=== PATIENT | male | born 1980 | race Caucasian/White ===

== ENCOUNTER 2020-04-07 08:27 | Outpatient (REF) | payer OTHER, SELFPAY | END 2020-04-07 08:28 | disposition home or self-care (01) | LOC: HO.LAB 08:27 | PROVIDERS: PCP Internal Medicine; Visit Provider Internal Medicine | DX: Z20.828 Contact with and (suspected) exposure to other viral communicable diseases (principal) | CPT/HCPCS: 87635 ==

== ENCOUNTER 2020-04-19 11:44 | Outpatient (REF) | payer OTHER, SELFPAY | END 2020-04-19 11:45 | disposition home or self-care (01) | LOC: HO.LAB 11:44 | PROVIDERS: Visit Provider Internal Medicine | DX: Z20.828 Contact with and (suspected) exposure to other viral communicable diseases (principal) | CPT/HCPCS: 87635 ==

== ENCOUNTER 2020-07-30 09:37 | Outpatient (REF) | payer OTHER, SELFPAY | END 2020-07-30 09:38 | disposition home or self-care (01) | LOC: HO.LAB 09:37 | PROVIDERS: Visit Provider Internal Medicine | DX: Z20.822 Contact with and (suspected) exposure to COVID-19 (principal) | CPT/HCPCS: 36415; C9803; U0003 ==

== ENCOUNTER 2021-03-28 10:48 | Emergency (ER) | payer OTHER, SELFPAY ==
[2021-03-28 11:45] VITALS: BP 109/76; PULSE 65; RESP 18; TEMP 36.9; O2SAT 99; BMI 23.6
[2021-03-28 12:18] LABS: MANUAL DIFF FLAG NO
[2021-03-28 12:20] LABS: Basophils Percent Auto 0.4 % (0-2); Eosinophils Percent Auto 0.4 % (0-4); Hematocrit 39.6 % (42-52); Hemoglobin 13.3 g/dl (14.0-18.0); Imm Gran Abs Auto 0.02 X10*3/uL (0.00-0.03); Imm Gran Pct Auto 0.3 % (0.0-0.4); Lymphocytes Absolute Auto 1.9 X10*3/uL (1.2-4.9); Lymphocytes Percent Auto 25.1 % (20-40); Mean Corpuscular HGB Conc 33.6 g/dl (31.0-36.0); Mean Corpuscular Hemoglobin 27.1 pg (27.0-33.0); Mean Corpuscular Volume 80.7 fL (80-98); Mean Platelet Volume 10.8 fL (9.4-12.4); Monocytes Absolute Auto 0.6 X10*3/uL (0.1-1.2); Monocytes Percent Auto 7.5 % (2-11); Neutrophils Absolute Auto 4.9 X10*3/uL (2.0-8.3); Neutrophils Percent Auto 66.3 % (45-73); Platelet Count 252 X10*3/uL (160-400); Red Blood Count 4.91 X10*6/uL (4.60-5.80); White Blood Count 7.4 X10*3/uL (4.8-10.8)
[2021-03-28 12:22] LABS: Appearance Urine HAZY; Color Urine STRAW; Glucose Urine UA NEG (NEG); Leukocyte Esterase Urine NEG (NEG); Nitrite Urine NEG (NEG); Specific Gravity - Urine <= 1.005 (1.005-1.025); Urine Blood NEG (NEG); Urine Ketones NEG (NEG); Urine Protein NEG (NEG-TRACE)
--- NOTE | 2021-03-28 12:28 | ED_ITS ---
HPI - General Adult General Chief complaint: General Medical Stated complaint: back pain Time Seen by Provider: 03/28/21 11:58 Source: patient Mode of arrival: ambulatory Limitations: no limitations History of Present Illness HPI narrative: Patient presents to ED multiple complaints. Patient states chronic lower back pain for years is going to physical therapy for his back pain. Patient denies any urinary/bowel incontinence. Patient had 2 normal x- ray at [facility]. Patient may concern is left flank pain for 4 months and wanted to get evaluated. Patient thinks he might be having issues in his kidneys and will prefer to get blood work to evaluate his kidneys. Patient denies any recent trauma to abdomen or back, nausea, vomiting, dysuria, hematuria, fever, or chills. Patient states the flank pain is worse on movement. Patient does have history of muscle spasm. Patient denies any urinary/bowel incontinence. Related Data Previous Rx's Medication Instructions Recorded cyclobenzaprine 10 mg tablet 10 mg PO TID PRN #18 tab 03/28/21 prednisone 20 mg tablet 40 mg PO DAILY 5 Days #10 tab 03/28/21 Allergies Allergy/AdvReac Type Severity Reaction Status Date / Time aspirin Allergy Swelling Verified 03/28/21 11:49 Review of Systems Constitutional: Constitutional: Reports as per HPI and Reports no additional constitutional complaints Eyes: Eyes: Reports as per HPI and Reports no additional eye complaints ENT: Reports system reviewed and no additional complaints, except as documented and Reports as per HPI Cardiovascular: Cardiovascular: Reports as per HPI and Reports no additional cardiovascular complaints Respiratory: Respiratory: Reports as per HPI and Reports no additional respiratory complaints Gastrointestinal: Gastrointestinal: Reports as per HPI and Reports no additional gastrointestinal complaints Genitourinary: Genitourinary: Reports no additional male genitourinary complaints and Reports as per HPI Musculoskeletal: Musculoskeletal: Reports no additional musculoskeletal complaints, Reports as per HPI and Reports back pain (Low back pain) Comments: Left flank pain Neurologic: Reports system reviewed and no additional complaints, except as documented and Reports as per HPI Psychiatric: Psychiatric: Reports no additional psychiatric complaints and Reports as per HPI [facility] Past Medical History Medical History (Updated 03/28/21 @ 13:12 by LANETTE Bolton) No known health problems Social History Social History Advance Directives: No Advance Directives Information Provided: No Physical Exam Vital Signs: Vital Signs: Last Vital Signs Temp 98.5 F 03/28/21 11:45 Pulse 65 03/28/21 11:45 Resp 18 03/28/21 11:45 BP 109/76 03/28/21 11:45 Pulse Ox 99 03/28/21 11:45 Body Mass Index 23.6 Const: General: cooperative, healthy appearing, comfortable, no acute distress, well developed, alert, awake and Physically active Orientation/consciousness: patient oriented x3 HENMT: Head: Yes normal to inspection, Yes No palpable skull fracture present, Yes normocephalic, Yes atraumatic and No abrasion Eyes: General: appearance normal, both eyes and all related structures Neck: Neck: Yes normal visual inspection, Yes full ROM, Yes no lymphadenopathy, Yes no meningeal signs, Yes trachea midline, Yes supple and No tender Chest: Chest palpation & inspection: normal inspection of the chest and normal palpation of entire chest wall Resp: Effort & Inspection: normal respiratory effort and able to speak in complete sentences Auscultation: clear to auscultation bilaterally GI: Inspection: Yes normal to inspection and No abdominal wall ecchymosis Palpation (GI): Soft to palpation, not firm, nontender, no guarding and not rigid : General: Yes CVA tenderness (left flank) and Yes no CVA tenderness Back/Spine/Pelvis: Other: Left flank pain on movement. Back: no CVA tenderness, CVA tenderness (left flank) and back tenderness (mild lumbar spine) Skin: General skin exam: no rashes or lesions noted and elasticity normal Neuro: General: patient oriented x3, gait normal, no meningeal signs and CN's II-XI intact bilaterally Cranial nerves: Yes CN's II-XII intact bilaterally Extrem: General: Yes normal to inspection and Yes full ROM Psych: Appearance: grossly normal, well kempt and not disheveled Course Course Course Narrative: History physical exam does not indicate cauda equinus syndrome. Patient does not have any recent trauma. 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 None indication for repeat x-ray. History muscle spasm. Order lidocaine patch. Patient cannot use aspirin and NSAIDs. Will order urine just basic labs due to patient being concerned for kidney function. Reevaluation(s) Reevaluation #1: Patient labs and urine came back normal. Patient to be discharged with muscle relaxers and steroids. Patient can only take Tylenol. Patient cannot take NSAIDs due to allergies. Time: 13:11 Medical Decision Making MDM Narrative Medical decision making narrative: Muscle spasm Lab Data Result diagrams: 03/28/21 12:12 03/28/21 12:12 Labs: Lab Results 03/28/21 03/28/21 03/28/21 Range/Units 12:12 12:12 12:12 WBC 7.4 (4.8-10.8) X10*3/uL RBC 4.91 (4.60-5.80) X10*6/uL Hgb 13.3 L (14.0-18.0) g/dl Hct 39.6 L (42-52) % MCV 80.7 (80-98) fL MCH 27.1 (27.0-33.0) pg MCHC 33.6 (31.0-36.0) g/dl RDW 13.0 (11.0-16.0) % Plt Count 252 (160-400) X10*3/uL MPV 10.8 (9.4-12.4) fL Immature Gran % (Auto) 0.3 (0.0-0.4) % Neut % (Auto) 66.3 (45-73) % Lymph % (Auto) 25.1 (20-40) % [place] % (Auto) 7.5 (2-11) % Eos % (Auto) 0.4 (0-4) % Baso % (Auto) 0.4 (0-2) % Lymph # (Auto) 1.9 (1.2-4.9) X10*3/uL [place] # (Auto) 0.6 (0.1-1.2) X10*3/uL Eos # (Auto) 0.0 (0.0-0.4) X10*3/uL Baso # (Auto) 0.0 (0.0-0.2) X10*3/uL Abs Immat Gran (auto) 0.02 (0.00-0.03) X10*3/uL Absolute Neuts (auto) 4.9 (2.0-8.3) X10*3/uL Absolute Nucleated RBC 0.000 (0.0-0.012) X10*3/uL Nucleated RBC % (auto) 0.0 (0.0-0.2) /100WBC Sodium 140 (135-145) mmol/L Potassium 4.1 (3.3-5.1) mmol/L Chloride 107 (96-108) mmol/L Carbon Dioxide 24 (22-29) mmol/L Anion Gap 13 (12-20) BUN 16 (9-16) mg/dL Creatinine 0.79 (0.5-1.4) mg/dL Estim Creat Clear Calc 129.6 Estimated GFR > 60 Random Glucose 98 (60-115) mg/dL Calcium 9.6 (8.4-10.2) mg/dL Urine Color STRAW Urine Appearance HAZY Urine pH 6.0 (5.0-8.0) Ur Specific [place] <= 1.005 (1.005-1.025) Urine Protein NEG (NEG-TRACE) MG/DL Urine Glucose (UA) NEG (NEG) MG/DL Urine Ketones NEG (NEG) MG/DL Urine Blood NEG (NEG) Urine Nitrite NEG (NEG) Ur Leukocyte Esterase NEG (NEG) Discharge Plan Discharge Clinical Impression: Muscle spasm Patient Disposition: Home, Self-Care Instructions: Muscle Spasm (ED) Additional Instructions: Return to ED for any dysuria, hematuria, testicular pain, nausea, vomiting, severe back pain, severe flank pain, urinary/bowel incontinence, or any other concerning symptoms. You can also take Tylenol with med you are being prescribed. Please follow-up with primary care provider Prescriptions: New cyclobenzaprine 10 mg tablet 10 mg PO TID PRN (Reason: pain) Qty: 18 RF: 0 prednisone 20 mg tablet 40 mg PO DAILY 5 Days Qty: 10 RF: 0 Stand Alone Forms: Work/School Release Interventions: ED Discharge Assessment Last Done: 03/28/21 13:30 Discharge Date/Time: 03/28/21 13:30 Print Language: Tanzanian
[2021-03-28 12:35] LABS: Anion Gap 13 (12-20); Blood Urea Nitrogen 16 mg/dL (9-16); Calcium 9.6 mg/dL (8.4-10.2); Carbon Dioxide 24 mmol/L (22-29); Chloride 107 mmol/L (96-108); Creatinine Clr Calc Pharmacy 129.6; Estimated Glomerular Filt Rate > 60; Glucose Random 98 mg/dL (60-115); Potassium 4.1 mmol/L (3.3-5.1); Sodium 140 mmol/L (135-145)
[2021-03-28] MEDS: Lidocaine 4 % Patch ADH..PATCH 1 PATCH TRANSDERMA (12:51)
== END 2021-03-28 13:30 | disposition home or self-care (01) ==
PROVIDERS: Physician Assistant; Emergency Provider Emergency Medicine
DX: M54.5 Low back pain (principal); M62.830 Muscle spasm of back; Z79.899 Other long term (current) drug therapy
CPT/HCPCS: 36415; 80048; 81003; 85025; 99283

== ENCOUNTER 2021-07-08 13:39 | Outpatient (REF) | payer OTHER, SELFPAY ==
[2021-07-08 15:06] LABS: Binax Internal Control QC Valid; Binax Now Covid-19 Ag Negative (Negative)
== END 2021-07-08 13:40 | disposition home or self-care (01) ==
LOC: HO.LAB 13:39
PROVIDERS: Visit Provider Internal Medicine
DX: Z20.822 Contact with and (suspected) exposure to COVID-19 (principal)
CPT/HCPCS: 36415; C9803

== ENCOUNTER 2021-10-02 12:47 | Emergency (ER) | payer OTHER, SELFPAY ==
[2021-10-02 13:07] VITALS: BP 127/69; PULSE 89; RESP 16; TEMP 36.6; O2SAT 98; BMI 25.1
--- NOTE | 2021-10-02 14:30 | ED.GENADULT ---
HPI - General Adult General Chief complaint: General Medical Stated complaint: swollen glands Time Seen by Provider: 10/02/21 14:24 Source: patient Mode of arrival: ambulatory Limitations: no limitations History of Present Illness HPI narrative: 41-year-old male here with reports of right-sided swollen lymph nodes since yesterday. He denies any fevers, chills, weight loss, sore throat, cough, runny nose, ear pain, shortness of breath, chest pain. Patient states he feels well and has not been sick lately with any symptoms. He does report that he has some right lower dental pain which he has had for several months. He has not seen a dentist. He does have dental insurance. Related Data Previous Rx's Medication Instructions Recorded cyclobenzaprine 10 mg tablet 10 mg PO TID PRN #18 tab 03/28/21 prednisone 20 mg tablet 40 mg PO DAILY 5 Days #10 tab 03/28/21 amoxicillin 500 mg tablet 500 mg PO BID #20 tab 10/02/21 Allergies Allergy/AdvReac Type Severity Reaction Status Date / Time aspirin Allergy Swelling Verified 10/02/21 13:10 Review of Systems Review of Systems: Yes all other systems are reviewed and are negative Constitutional: Constitutional: Reports no additional constitutional complaints, Denies body ache(s), Denies chills, Denies fever(s), Denies headache(s) and Denies weakness Eyes: Eyes: Reports no additional eye complaints and Denies change in vision ENT: Reports system reviewed and no additional complaints, except as documented, Reports dental pain, Denies dizziness, Denies headache(s), Denies nasal congestion, Denies nasal discharge and Denies neck pain Cardiovascular: Cardiovascular: Reports no additional cardiovascular complaints, Denies chest pain, Denies leg edema and Denies dyspnea Respiratory: Respiratory: Reports no additional respiratory complaints, Denies cough and Denies dyspnea Gastrointestinal: Gastrointestinal: Reports no additional gastrointestinal complaints, Denies abdominal pain, Denies diarrhea, Denies nausea and Denies vomiting Genitourinary: Genitourinary: Denies urinary incontinence Musculoskeletal: Musculoskeletal: Reports no additional musculoskeletal complaints, Denies back pain, Denies arthralgias, Denies joint swelling, Denies neck pain, Denies numbness and Denies tingling Integumentary/Breasts: Skin/Breast: Reports system reviewed and no additional complaints, except as docu and Denies rash Neurologic: Reports system reviewed and no additional complaints, except as documented, Denies dizziness, Denies headache(s), Denies numbness, Denies tingling and Denies weakness PMFSH Past Medical History Attestation statement: The following information was validated with the patient. Source: old records reviewed and nursing notes reviewed Medical History No known health problems Social History Social History Advance Directives: No Advance Directives Information Provided: Yes Physical Exam ED Vital Signs: Vital Signs - 24 hr 10/02/21 13:07 Temperature 97.8 F Pulse Rate 89 Respiratory Rate 16 Blood Pressure 127/69 Pulse Oximetry 98 BMI result Body Mass Index 25.1 Const General: cooperative, healthy appearing and no acute distress Orientation/consciousness: patient oriented x3 Limitations: no limitations HENMT Head: Yes normal to inspection Ears: hearing grossly normal bilaterally and TM's normal bilaterally General nose exam: Normal external nose present Face and sinus: Yes normal facial exam Mouth: Normal oral and palatal mucosa present Teeth and gingiva: caries and other (Extensive caries, no obvious abscesses or infection noted) Throat: Yes posterior oropharynx normal, Yes tonsils normal and Yes uvula midline Eyes General: appearance normal, both eyes and all related structures Pupils: Equal, round and reactive pupils present Neck Neck: Yes normal visual inspection, Yes full ROM, Yes no meningeal signs and Yes lymphadenopathy (Right anterior cervical single node, mobile, tender 1 mm) Chest Chest palpation & inspection: normal inspection of the chest Resp Effort & Inspection: normal respiratory effort Auscultation: clear to auscultation bilaterally Cardio Rate: regular rate Rhythm: regular rhythm Peripheral pulses: Peripheral pulses 2+ throughout GI Inspection: Yes normal to inspection Palpation (GI): Soft to palpation and nontender Back/Spine/Pelvis Thoracic/Lumbar Spine: thoracic and lumbar spine normal to inspection Skin General skin exam: no rashes or lesions noted Neuro General: patient oriented x3, moves all extremities and no meningeal signs Cranial nerves: Yes Equal, round and reactive pupils present Extrem General: Yes normal to inspection, Yes no pedal edema and Yes no calf tenderness Course Course Course Narrative: 41-year-old male here with a single no lymphadenopathy with no other symptoms. Patient does have extensive dental caries reports some right lower dental pain although do not appreciate any obvious infection. Due to this will initiate oral antibiotics and have patient follow-up with dental clinic outpatient. I did discuss with him if he his having continued lymphadenopathy despite the knee antibiotics after 7 days he should follow-up with his primary care doctor. Reviewed worrisome signs and symptoms of when to return to the emergency department. Comfortable discharge home. Medical Decision Making Medical Records Medical records reviewed: Yes I reviewed the patient's medical records. Lab Data Lab results reviewed: Yes I reviewed the patient's lab results. Discharge Plan Discharge Clinical Impression: Pain, dental, Lymphadenopathy Patient Disposition: Home, Self-Care Instructions: Lymphadenopathy (ED), Toothache (ED) Additional Instructions: Follow-up with dental clinic list If continued swollen lymph node after 1 week see your PCP motrin or tylenol for pain or fever Prescriptions: New amoxicillin 500 mg tablet 500 mg PO BID Qty: 20 0RF No Action cyclobenzaprine 10 mg tablet 10 mg PO TID PRN (Reason: pain) Qty: 18 0RF Rx Instructions: side effect is drowsiness. Do not take at work or while driving. prednisone 20 mg tablet 40 mg PO DAILY 5 Days Qty: 10 0RF Referrals: Physician,Unknown J [Primary Care Provider] - 2 days Interventions: ED Discharge Assessment Last Done: 10/02/21 14:32
== END 2021-10-02 14:33 | disposition home or self-care (01) ==
PROVIDERS: Emergency Provider Emergency Medicine
DX: K02.9 Dental caries, unspecified (principal); R59.1 Generalized enlarged lymph nodes; K08.89 Other specified disorders of teeth and supporting structures
CPT/HCPCS: 99283

== ENCOUNTER 2022-02-09 13:37 | Emergency (ER) | payer OTHER, SELFPAY ==
--- NOTE | 2022-02-09 13:44 | ECG_ITS ---
Test Reason : CHEST PAIN Blood Pressure : / mmHG Vent. Rate : 073 BPM Atrial Rate : 073 BPM P-R Int : 142 ms QRS Dur : 094 ms QT Int : 350 ms P-R-T Axes : 038 -03 020 degrees QTc Int : 385 ms Normal sinus rhythm Normal ECG No previous ECGs available Referred By: Generic ED Physician Electronically Signed By:HEATHER MURPHY
[2022-02-09 14:00] VITALS: BP 113/80; PULSE 78; RESP 18; TEMP 37.3; O2SAT 99; BMI 26.6
[2022-02-09 14:48] LABS: COVID-19 Test Negative (Negative)
--- NOTE | 2022-02-09 15:25 | ED.ANXIETY ---
HPI - Anxiety General Chief Complaint: General Medical Stated Complaint: chest pain headache Time Seen by Provider: 02/09/22 14:16 Source: patient Mode of arrival: ambulatory Limitations: no limitations History of Present Illness HPI narrative: 41-year-old male with a past medical history of anxiety reports he has to take Vistaril, presenting to the ED with complaints of increased anxiety over the past few days. Reports that he has been having some work and personal stressors at home that he does not want to discuss at this time although it is making him very anxious. He denies any thoughts of SI/HI/auditory visualizations thoughts of self-injury or any other symptoms complaints or concerns at this time. complaint: anxiety Onset (ago): day(s) (For the past few days worse today) Severity: moderate Quality: constant Place: home History of similar episodes: Yes Provoking factors: emotional stress and work/job stress Relieving factors: medication (usually takes vistaril althought does not have any ) Related Data Previous Rx's Medication Instructions Recorded cyclobenzaprine 10 mg tablet 10 mg PO TID PRN pain #18 tabs 03/28/21 prednisone 20 mg tablet 40 mg PO DAILY 5 days #10 tabs 03/28/21 amoxicillin 500 mg tablet 500 mg PO BID #20 tabs 10/02/21 hydroxyzine pamoate 50 mg capsule 50 mg PO TID PRN anxiety #20 caps 02/09/22 (Vistaril) Allergies Allergy/AdvReac Type Severity Reaction Status Date / Time aspirin Allergy Swelling Verified 10/02/21 13:10 Review of Systems Review of Systems: Constitutional : No Fever, No Chills ENT/Mouth : No Ear Pain, No Nasal Congestion, No sore throat Eyes: No Eye Pain, No Swelling, No Redness Cardiovascular : No Chest Pain, No SOB Respiratory : No Cough, No Sputum, No Dyspnea Gastrointestinal : No ingestions, No Nausea, No Vomiting, No Diarrhea, No Hematochezia, No Melena Genitourinary : No Dysuria, No Urinary Frequency, No Hematuria Musculoskeletal : No Myalgias Skin : No Skin Lesions, No rash Neuro : No Weakness, No Numbness, No Paresthesias, No Dizziness, No Headache Psych : + Anxiety, No Depression, No SI, No thoughts of self injury, No HI, No AVH, Heme/Lymph: No Lymphadenopathy Endocrine : No Polyuria, No Polydipsia Yes all other systems are reviewed and are negative [facility] Past Medical History Attestation statement: The following information was validated with the patient. Source: old records reviewed and nursing notes reviewed Medical History No known health problems Social History Social History Advance Directives: No Advance Directives Information Provided: No Physical Exam Vital Signs: Vital Signs: Last Vital Signs Temp 99.2 F 02/09/22 14:00 Pulse 78 02/09/22 14:00 Resp 18 02/09/22 14:00 BP 113/80 02/09/22 14:00 Pulse Ox 99 02/09/22 14:00 O2 Del Method 02/09/22 14:00 BMI result Body Mass Index 26.6 vital signs have been reviewed as normal and appeared to be correct. Blood pressure normal. Heart rate normal. Respiration rate normal. Temperature normal. Oxygen saturation normal. Appearance: Alert. Oriented X3. No acute distress. Head: Normal external exam. Normocephalic. Atraumatic. No Mukherjee signs noted. No raccoon eyes noted Eyes: PERRLA. EOMI. Conjunctiva and sclera normal. Eyelids normal. ENT: EAC normal. TM's Normal. Pharynx normal. Uvula midline. Moist mucous membranes. No trismus noted. No drooling noted. No muffled voice noted. Neck: Normal inspection. Neck supple. FROM. No adenopathy. Thyroid Normal. No meningeal signs. No neck mass noted. CVS: Normal heart rate and rhythm. Heart sound normal. No murmurs noted. Pulses normal throughout. Respiratory: No respiratory distress. Painless inspiration. Breath sounds normal. No wheezes/rales/rhonchi noted. Chest nontender. No accessory muscle usage noted or decreased air movement noted. Abdomen: Soft and nontender. Bowel sounds normal in all 4 quadrants. No distention noted. No organomegaly noted. No visible injury noted. Back: No CVA tenderness. Full range of motion noted. Skin: Skin warm and dry. Normal skin color. Normal skin turgor. No rashes/lesions/lacerations noted. Extremities: No lower extremity edema. Extremities exhibit normal range of motion. Extremities nontender. Neuro: Oriented X 3. No motor deficit. No sensory deficit. Reflexes normal. CN's II-XII intact bilaterally? Psych: Appearance grossly normal, well-kept, mental status normal, speech and movement normal, speech clear, patient appears very sad and anxious. Is cooperative. Normal thought process. Normal thought content. Normal good insight. Judgment good. Course Course Course Narrative: Patient denies any other symptoms other than his anxiety. Requesting a short script for Vistaril. Denies any SI/HI/auditory visualizations thoughts of self-injury or any other symptoms complaints or concerns. Therefore at this time will DC home with a short script for Vistaril due to he refuses/declining to speak to social work specialist's reports he does not needed along with instructions return if any new or worsening symptoms follow up with primary care provider. Patient understands agrees with this plan. [facility] - Anxiety Medical Records Attestation: I reviewed the patient's medical records. Lab Data Attestation: I reviewed the patient's lab results. Labs: Lab Results 02/09/22 Range/Units 14:05 COVID-19 (HI) Negative (Negative) COVID-19 Clin Com See Note Discharge Plan Discharge Clinical Impression: Anxiety Patient Disposition: Home, Self-Care Instructions: Anxiety (ED) Prescriptions: New hydroxyzine pamoate [Vistaril] 50 mg capsule 50 mg PO TID PRN (Reason: anxiety) Qty: 20 0RF No Action cyclobenzaprine 10 mg tablet 10 mg PO TID PRN (Reason: pain) Qty: 18 0RF Rx Instructions: side effect is drowsiness. Do not take at work or while driving. prednisone 20 mg tablet 40 mg PO DAILY 5 Days Qty: 10 0RF amoxicillin 500 mg tablet 500 mg PO BID Qty: 20 0RF Referrals: Abe Rudd MD [Primary Care Provider] - 2 days (your pcp) Stand Alone Forms: Work/School Release Interventions: ED Discharge Assessment Last Done: 02/09/22 15:32 Discharge Date/Time: 02/09/22 15:33
== END 2022-02-09 15:33 | disposition home or self-care (01) ==
PROVIDERS: Emergency Provider Emergency Medicine; PCP Internal Medicine
DX: F41.9 Anxiety disorder, unspecified (principal); Z20.822 Contact with and (suspected) exposure to COVID-19
CPT/HCPCS: 87635; 93005; 99283

== ENCOUNTER 2022-03-07 11:35 | Emergency (ER) | payer OTHER, SELFPAY ==
[2022-03-07 12:26] VITALS: BP 104/79; PULSE 67; RESP 18; TEMP 36.4; O2SAT 97; BMI 25.1
[2022-03-07] MEDS: Acetaminophen 325 MG TABLET 650 MG PO (12:30)
--- NOTE | 2022-03-07 16:07 | ED.BACK ---
HPI - Back Pain/Injury General Chief Complaint: Back Pain/Injury Stated Complaint: Back pain Time Seen by Provider: 03/07/22 16:03 Source: patient Mode of arrival: ambulatory Limitations: no limitations History of Present Illness HPI Narrative: 41 year old male presents to the ER for evaluation of middle and lower back pain that started today when he was at work. 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 It is worse with movement. No radiation down the legs. No bowel or bladder incontinence. MD elicited complaint: back pain and back injury Onset (ago): hour(s) Timing: constant Severity: moderate Similar Symptoms Previously: Yes Quality: aching and spasming Location: right lower back and left lower back Radiation: none Exacerbating factors: movement Relieving factors: none Context: while lifting Associated symptoms: denies other symptoms Work related injury: Yes Related Data Previous Rx's Medication Instructions Recorded cyclobenzaprine 10 mg tablet 10 mg PO TID PRN pain #18 tabs 03/28/21 prednisone 20 mg tablet 40 mg PO DAILY 5 days #10 tabs 03/28/21 amoxicillin 500 mg tablet 500 mg PO BID #20 tabs 10/02/21 hydroxyzine pamoate 50 mg capsule 50 mg PO TID PRN anxiety #20 caps 02/09/22 (Vistaril) cyclobenzaprine 10 mg tablet 10 mg PO TID PRN muscle spasm #10 03/07/22 tabs ibuprofen 600 mg tablet 600 mg PO Q8H PRN pain #14 tabs 03/07/22 lidocaine 5 % topical patch 1 patch topical DAILY #15 ea 03/07/22 Allergies Allergy/AdvReac Type Severity Reaction Status Date / Time aspirin Allergy Intermediate Swelling Verified 03/07/22 12:26 Review of Systems Review of Systems: Constitutional: No Fever, No Chills Cardiovascular: No Chest Pain, No SOB Gastrointestinal: No Nausea, No Vomiting, No abdominal Pain Musculoskeletal: No joint pain, + Myalgias Skin: No Skin Lesions, No rash Neuro: No Weakness, No Numbness Psych: No Anxiety/Panic, No Depression Heme/Lymph: No Bruising, No Lymphadenopathy PMFSH Past Medical History Medical History No known health problems Social History Social History Advance Directives: No Advance Directives Information Provided: No Physical Exam Vital Signs: Vital Signs: Last Vital Signs Temp 97.6 F 03/07/22 12:26 Pulse 67 03/07/22 12:26 Resp 18 03/07/22 12:26 BP 104/79 03/07/22 12:26 Pulse Ox 97 03/07/22 12:26 O2 Del Method 03/07/22 12:26 BMI result Body Mass Index 25.1 Appearance: Alert. Oriented X3. No acute distress. HEENT: normal inspection CVS: Normal heart rate and rhythm. Pulses normal. Respiratory: No respiratory distress. Skin: Skin warm and dry. Normal skin color. Normal skin turgor. No rashes. Back: normal inspection. No midline tenderness. Normal range of motion. There is soft tissue tenderness and palpable spasm of the paraspinous muscles in the lower thoracic and upper lumbar areas. Extremities: Normal inspection x4 Neuro: Oriented X 3. No motor deficit. No sensory deficit. steady gait Course Course Course Narrative: 41-year-old male presenting to the ER for evaluation of back pain that started today when he was lifting heavy tires at work. He has no red flag symptoms of LBP. Will treat for muscle strain and spasm with muscle relaxers, NSAID and Lidoderm patches. Patient agrees with plan. Work note provided per request. Stable for DC. Discharge Plan Discharge Clinical Impression: Strain of lumbar region Patient Disposition: Home, Self-Care Instructions: Low Back Strain (ED), Lower Back Exercises (ED) Additional Instructions: No bending, lifting or twisting. Use ice several times per day for 20 minutes at a time for the next 48 hours and then change to heat. Take medications as prescribed to help with pain and discomfort. Follow up with your Primary Care Doctor this week. If your pain worsens, if you develop new numbness, tingling, weakness, loss of function or incontinence call 911 or come back to the ER right away for evaluation. Prescriptions: New cyclobenzaprine 10 mg tablet 10 mg PO TID PRN (Reason: muscle spasm) Qty: 10 0RF ibuprofen 600 mg tablet 600 mg PO Q8H PRN (Reason: pain) Qty: 14 0RF lidocaine 5 % adhesive patch,medicated 1 patch topical DAILY Qty: 15 0RF Rx Instructions: leave on most painful area for up to 12 hrs No Action cyclobenzaprine 10 mg tablet 10 mg PO TID PRN (Reason: pain) Qty: 18 0RF Rx Instructions: side effect is drowsiness. Do not take at work or while driving. prednisone 20 mg tablet 40 mg PO DAILY 5 Days Qty: 10 0RF amoxicillin 500 mg tablet 500 mg PO BID Qty: 20 0RF hydroxyzine pamoate [Vistaril] 50 mg capsule 50 mg PO TID PRN (Reason: anxiety) Qty: 20 0RF Referrals: Abe Rudd MD [Primary Care Provider] - Stand Alone Forms: Work/School Release Interventions: ED Discharge Assessment Last Done: 03/07/22 16:33
== END 2022-03-07 16:34 | disposition home or self-care (01) ==
PROVIDERS: Emergency Provider Emergency Medicine; PCP Internal Medicine
DX: M54.50 Low back pain, unspecified (principal); Z79.899 Other long term (current) drug therapy
CPT/HCPCS: 99283

== ENCOUNTER 2022-05-23 09:28 | Emergency (ER) | payer OTHER, SELFPAY ==
[2022-05-23 09:31] VITALS: BP 128/70; PULSE 72; RESP 16; TEMP 36.3; O2SAT 98; BMI 23.6
--- NOTE | 2022-05-23 09:59 | ECG_ITS ---
Test Reason : CHEST PAIN Blood Pressure : / mmHG Vent. Rate : 063 BPM Atrial Rate : 063 BPM P-R Int : 130 ms QRS Dur : 094 ms QT Int : 366 ms P-R-T Axes : 022 000 015 degrees QTc Int : 374 ms Normal sinus rhythm Minimal voltage criteria for LVH, may be normal variant ( R in aVL ) Borderline ECG When compared with ECG of 09-FEB-2022 13:31, No significant change was found Referred By: Cris Whittington Electronically Signed By:ALINA KRUGER MD
--- NOTE | 2022-05-23 10:00 | ED.GENADULT ---
HPI - General Adult General Chief complaint: General Medical Stated complaint: HBP Time Seen by Provider: 05/23/22 09:38 Source: patient Mode of arrival: ambulatory Limitations: no limitations History of Present Illness HPI narrative: 41 yo male healthy here with chest tightness/headache intermittent. Patient reports multiple stressors at work and at home. One month ago he had an episode of chest tightness which occurred with while working. There is no associated shortness of breath, vomiting, diaphoresis with this. It resolved after several minutes. Patient reports similar episode yesterday but this occurred while resting with no associated symptoms. Patient was noted to have elevated blood pressure on home machine yesterday of 140/90. Patient reports felt better but checked his blood pressure today and was 160/90. No symptoms today. Patient reports he has spoken to his primary care doctor about the symptoms. He had labs and EKG which were normal. Related Data Previous Rx's Medication Instructions Recorded cyclobenzaprine 10 mg tablet 10 mg PO TID PRN pain #18 tabs 03/28/21 prednisone 20 mg tablet 40 mg PO DAILY 5 days #10 tabs 03/28/21 amoxicillin 500 mg tablet 500 mg PO BID #20 tabs 10/02/21 hydroxyzine pamoate 50 mg capsule 50 mg PO TID PRN anxiety #20 caps 02/09/22 (Vistaril) cyclobenzaprine 10 mg tablet 10 mg PO TID PRN muscle spasm #10 03/07/22 tabs ibuprofen 600 mg tablet 600 mg PO Q8H PRN pain #14 tabs 03/07/22 lidocaine 5 % topical patch 1 patch topical DAILY #15 ea 03/07/22 Allergies Allergy/AdvReac Type Severity Reaction Status Date / Time aspirin Allergy Intermediate Swelling Verified 03/07/22 12:26 Review of Systems Review of Systems: Yes all other systems are reviewed and are negative Constitutional: Constitutional: Reports no additional constitutional complaints, Denies body ache(s), Denies chills, Denies fever(s), Reports headache(s) and Denies weakness Eyes: Eyes: Reports no additional eye complaints and Denies change in vision ENT: Reports system reviewed and no additional complaints, except as documented, Denies dizziness, Reports headache(s), Denies nasal congestion, Denies nasal discharge and Denies neck pain Cardiovascular: Cardiovascular: Reports no additional cardiovascular complaints, Reports chest pain, Denies leg edema and Denies dyspnea Respiratory: Respiratory: Reports no additional respiratory complaints, Denies cough and Denies dyspnea Gastrointestinal: Gastrointestinal: Reports no additional gastrointestinal complaints, Denies abdominal pain, Denies diarrhea, Denies nausea and Denies vomiting Genitourinary: Genitourinary: Denies urinary incontinence Musculoskeletal: Musculoskeletal: Reports no additional musculoskeletal complaints, Denies back pain, Denies arthralgias, Denies joint swelling, Denies neck pain, Denies numbness and Denies tingling Integumentary/Breasts: Skin/Breast: Reports system reviewed and no additional complaints, except as docu and Denies rash Neurologic: Reports system reviewed and no additional complaints, except as documented, Denies dizziness, Reports headache(s), Denies numbness, Denies tingling and Denies weakness PMFSH Past Medical History Attestation statement: The following information was validated with the patient. Source: old records reviewed and nursing notes reviewed Medical History No known health problems Social History Social History Advance Directives: No Advance Directives Information Provided: Yes Physical Exam ED Vital Signs: Vital Signs - 24 hr 05/23/22 09:31 05/23/22 10:58 Temperature 97.4 F Pulse Rate 72 71 Respiratory Rate 16 16 Blood Pressure 128/70 108/60 Pulse Oximetry 98 98 Oxygen Delivery Method Room Air BMI result Body Mass Index 23.6 Const General: cooperative, healthy appearing, comfortable and no acute distress Orientation/consciousness: patient oriented x3 Limitations: no limitations [facility] Head: Yes normal to inspection Ears: hearing grossly normal bilaterally Eyes General: appearance normal, both eyes and all related structures Pupils: Equal, round and reactive pupils present Neck Neck: Yes normal visual inspection, Yes full ROM and Yes no lymphadenopathy Chest Chest palpation & inspection: normal inspection of the chest Resp Effort & Inspection: normal respiratory effort Auscultation: clear to auscultation bilaterally Cardio Rate: regular rate Rhythm: regular rhythm Peripheral pulses: Peripheral pulses 2+ throughout GI Inspection: Yes normal to inspection Palpation (GI): Soft to palpation and nontender General: Yes no CVA tenderness Back/Spine/Pelvis Back: no CVA tenderness Thoracic/Lumbar Spine: thoracic and lumbar spine normal to inspection Skin General skin exam: no rashes or lesions noted Neuro General: patient oriented x3 and moves all extremities Cranial nerves: Yes Equal, round and reactive pupils present Cognition (Neuro): normal cognition Gait exam (Neuro): Normal gait present Motor exam (neuro): 5/5 motor strength present throughout Sensory Exam: Normal double simultaneous stimulation for sensation Extrem General: Yes normal to inspection, Yes no pedal edema and Yes no calf tenderness Course Course Course Narrative: Blood work and EKG are normal. An asymptomatic here. Blood pressure x2 normal tensive. Recommend patient be monitoring blood pressure at home daily and writing down his numbers. He should follow-up with his primary care doctor for further management. Reviewed worrisome signs and symptoms of when to return to the emergency room. Comfortable discharge home. Medical Decision Making MDM Narrative Medical decision making narrative: 41-year-old male here with intermittent chest pain and headaches with elevated blood pressures at home over the last month. Also with multiple life stressors. Asymptomatic today. Blood pressure normal today. Will check labs, EKG -low concern for ACS. HPI is atypical for ACS with negative troponin EKG -perc is 0 Medical Records Medical records reviewed: Yes I reviewed the patient's medical records. Lab Data Lab results reviewed: Yes I reviewed the patient's lab results. Result diagrams: 05/23/22 10:09 05/23/22 10:09 Labs: Lab Results 05/23/22 05/23/22 05/23/22 Range/Units 10:09 10:09 10:09 WBC 5.9 (4.8-10.8) X10*3/uL RBC 5.22 (4.60-5.80) X10*6/uL Hgb 13.8 L (14.0-18.0) g/dl Hct 42.9 (42.0-52.0) % MCV 82.2 (80.0-98.0) fL MCH 26.4 L (27.0-33.0) pg MCHC 32.2 (31.0-36.0) g/dl RDW 12.9 (11.0-16.0) % Plt Count 271 (160-400) X10*3/uL MPV 10.8 (9.4-12.4) fL Immature Gran % (Auto) 0.5 H (0.0-0.4) % Neut % (Auto) 67.2 (45-73) % Lymph % (Auto) 22.8 (20-40) % Ponce % (Auto) 8.3 (2-11) % Eos % (Auto) 0.5 (0-4) % Baso % (Auto) 0.7 (0-2) % Lymph # (Auto) 1.4 (1.2-4.9) X10*3/uL Ponce # (Auto) 0.5 (0.1-1.2) X10*3/uL Eos # (Auto) 0.0 (0.0-0.4) X10*3/uL Baso # (Auto) 0.0 (0.0-0.2) X10*3/uL Abs Immat Gran (auto) 0.03 (0.00-0.03) X10*3/uL Absolute Neuts (auto) 4.0 (2.0-8.3) x10*3/uL Absolute Nucleated RBC 0.000 (0.0-0.012) X10*3/uL Nucleated RBC % (auto) 0.0 (0.0-0.2) /100WBC Sodium 141 (135-145) mmol/L Potassium 4.3 (3.3-5.1) mmol/L Chloride 106 (96-108) mmol/L Carbon Dioxide 27 (22-29) mmol/L Anion Gap 12 (12-20) BUN 21 H (9-16) mg/dL Creatinine 0.80 (0.5-1.4) mg/dL Estim Creat Clear Calc 126.7 Estimated GFR > 60 Random Glucose 103 (60-115) mg/dL Calcium 9.7 (8.4-10.2) mg/dL Magnesium 2.2 (1.6-2.6) mg/dL Total Bilirubin 0.3 (0.0-1.0) mg/dL Direct Bilirubin < 0.2 (0.0-0.5) mg/dL AST 16 (5-37) U/L ALT 40 (0-40) U/L Alkaline Phosphatase 76 (39-117) U/L Troponin I High Sens < 3.5 (<3.5-35.0) ng/L Total Protein 7.1 (6.5-8.0) g/dL Albumin 4.5 (3.5-5.0) g/dL ECG Data Attestation: I personally reviewed and interpreted this ECG as follows: Interpretation: Normal sinus rhythm with a rate of 63, normal [place], normal QRS, normal QT Discharge Plan Discharge Clinical Impression: Chest pain Patient Disposition: Home, Self-Care Instructions: Chest Pain (DC) Additional Instructions: Your blood pressure is normal today Please check blood pressure daily and write down your numbers Follow-up with primary [facility] Prescriptions: No Action cyclobenzaprine 10 mg tablet 10 mg PO TID PRN (Reason: pain) Qty: 18 0RF Rx Instructions: side effect is drowsiness. Do not take at work or while driving. prednisone 20 mg tablet 40 mg PO DAILY 5 Days Qty: 10 0RF cyclobenzaprine 10 mg tablet 10 mg PO TID PRN (Reason: muscle spasm) Qty: 10 0RF ibuprofen 600 mg tablet 600 mg PO Q8H PRN (Reason: pain) Qty: 14 0RF lidocaine 5 % adhesive patch,medicated 1 patch topical DAILY Qty: 15 0RF Rx Instructions: leave on most painful area for up to 12 hrs amoxicillin 500 mg tablet 500 mg PO BID Qty: 20 0RF hydroxyzine pamoate [Vistaril] 50 mg capsule 50 mg PO TID PRN (Reason: anxiety) Qty: 20 0RF Referrals: Abe Rudd MD [Primary Care Provider] - 1 week Interventions: ED Discharge Assessment Last Done: 05/23/22 11:09 Discharge Date/Time: 05/23/22 11:09
[2022-05-23 10:14] LABS: MANUAL DIFF FLAG NO
[2022-05-23 10:20] LABS: Basophils Percent Auto 0.7 % (0-2); Eosinophils Percent Auto 0.5 % (0-4); Hematocrit 42.9 % (42.0-52.0); Hemoglobin 13.8 g/dl (14.0-18.0); Imm Gran Abs Auto 0.03 X10*3/uL (0.00-0.03); Imm Gran Pct Auto 0.5 % (0.0-0.4); Lymphocytes Absolute Auto 1.4 X10*3/uL (1.2-4.9); Lymphocytes Percent Auto 22.8 % (20-40); Mean Corpuscular HGB Conc 32.2 g/dl (31.0-36.0); Mean Corpuscular Hemoglobin 26.4 pg (27.0-33.0); Mean Corpuscular Volume 82.2 fL (80.0-98.0); Mean Platelet Volume 10.8 fL (9.4-12.4); Monocytes Absolute Auto 0.5 X10*3/uL (0.1-1.2); Monocytes Percent Auto 8.3 % (2-11); Neutrophils Percent Auto 67.2 % (45-73); Platelet Count 271 X10*3/uL (160-400); Red Blood Count 5.22 X10*6/uL (4.60-5.80); Red Cell Distribution Width 12.9 % (11.0-16.0); White Blood Count 5.9 X10*3/uL (4.8-10.8)
[2022-05-23 10:46] LABS: Alanine Aminotransferase 40 U/L (0-40); Albumin Level 4.5 g/dL (3.5-5.0); Alkaline Phosphatase 76 U/L (39-117); Anion Gap 12 (12-20); Aspartate Amino Transferase 16 U/L (5-37); Bilirubin Direct < 0.2 mg/dL (0.0-0.5); Bilirubin Total 0.3 mg/dL (0.0-1.0); Blood Urea Nitrogen 21 mg/dL (9-16); Calcium 9.7 mg/dL (8.4-10.2); Carbon Dioxide 27 mmol/L (22-29); Chloride 106 mmol/L (96-108); Creatinine Clr Calc Pharmacy 126.7; Estimated Glomerular Filt Rate > 60; Glucose Random 103 mg/dL (60-115); Magnesium 2.2 mg/dL (1.6-2.6); Potassium 4.3 mmol/L (3.3-5.1); Sodium 141 mmol/L (135-145); Total Protein 7.1 g/dL (6.5-8.0)
[2022-05-23 10:47] LABS: Troponin-I High Sensitivity < 3.5 ng/L (<3.5-35.0)
[2022-05-23 10:58] VITALS: BP 108/60; PULSE 71; RESP 16; O2SAT 98
== END 2022-05-23 11:09 | disposition home or self-care (01) ==
PROVIDERS: Nurse Practitioner Family; Emergency Provider Emergency Medicine; PCP Internal Medicine
DX: R07.89 Other chest pain (principal); Z79.899 Other long term (current) drug therapy
CPT/HCPCS: 36415; 80048; 80076; 83735; 84484; 85025; 93005; 99283

== ENCOUNTER 2022-07-09 22:21 | Emergency (ER) | payer OTHER, SELFPAY ==
--- NOTE | ~2022-07-09 | XR_ITS ---
EXAMINATION: XR SHOULDER, LEFT CLINICAL INFORMATION: Pain COMPARISON: None TECHNIQUE: Four views of the left shoulder. FINDINGS: No fracture or dislocation. The glenohumeral joint is well aligned. The acromioclavicular joint is intact. The visualized lung is clear. The visualized ribs are intact. XR/XR shoulder LT min 2V IMPRESSION: Normal left shoulder.
[2022-07-09 22:23] VITALS: BP 127/72; PULSE 79; RESP 20; TEMP 36.6; O2SAT 98; BMI 23.0
[2022-07-09 23:46] VITALS: BP 102/69; PULSE 79; RESP 17; TEMP 36.6; O2SAT 98
--- NOTE | 2022-07-09 23:47 | ED.EXTPRO ---
HPI - Extremity Problem General Chief complaint: Extremity Problem Stated complaint: shoulder pain no injury Time Seen by Provider: 07/09/22 23:26 Source: patient Mode of arrival: ambulatory Limitations: no limitations History of Present Illness HPI Narrative: 42-year-old male came in for evaluation of left shoulder pain for the past 2 days. 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 No fall, no injury to the left shoulder. 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 Related Data Previous Rx's Medication Instructions Recorded cyclobenzaprine 10 mg tablet 10 mg PO TID PRN pain #18 tabs 03/28/21 prednisone 20 mg tablet 40 mg PO DAILY 5 days #10 tabs 03/28/21 amoxicillin 500 mg tablet 500 mg PO BID #20 tabs 10/02/21 hydroxyzine pamoate 50 mg capsule 50 mg PO TID PRN anxiety #20 caps 02/09/22 (Vistaril) cyclobenzaprine 10 mg tablet 10 mg PO TID PRN muscle spasm #10 03/07/22 tabs ibuprofen 600 mg tablet 600 mg PO Q8H PRN pain #14 tabs 03/07/22 lidocaine 5 % topical patch 1 patch topical DAILY #15 ea 03/07/22 cyclobenzaprine 10 mg tablet 10 mg PO TID #20 tabs 07/09/22 oxycodone 5 mg tablet 5 mg PO Q8H PRN pain #7 tabs 07/09/22 Allergies Allergy/AdvReac Type Severity Reaction Status Date / Time aspirin Allergy Intermediate Swelling Verified 07/09/22 22:27 Review of Systems Review of Systems: All other systems are reviewed and are negative Constitutional: Reports as per HPI and Reports no additional constitutional complaints Eyes: Reports as per HPI and Reports no additional eye complaints Reports system reviewed and no additional complaints, except as documented Cardiovascular: Reports as per HPI and Reports no additional cardiovascular complaints Respiratory: Reports as per HPI and Reports no additional respiratory complaints Gastrointestinal: Reports as per HPI and Reports no additional gastrointestinal complaints Genitourinary: Reports no additional female genitourinary complaints Musculoskeletal: Reports no additional musculoskeletal complaints Skin/Breast: Reports system reviewed and no additional complaints, except as docu Psychiatric: Reports no additional psychiatric complaints Endocrine: Reports no additional endocrine complaints Hematologic/Lymphatic: Reports no additional hematologic/lymphatic complaints Allergic/Immunologic: Reports no additional allergic/immunologic complaints Reports system reviewed and no additional complaints, except as documented and Reports Abnormal speech present [facility] Past Medical History Medical History No known health problems Social History Social History Advance Directives: No Advance Directives Information Provided: Yes Physical Exam Vital Signs: Vital Signs: Last Vital Signs Temp 97.9 F 07/09/22 22: Pulse 79 07/09/22 22:23 Resp 20 07/09/22 22:23 BP 127/72 07/09/22 22:23 Pulse Ox 98 07/09/22 22: O2 Del Method 07/09/22:23 BMI result Body Mass Index 23.0 Vital signs have been reviewed as appeared to be correct. Blood pressure normal. Heart rate normal. Respiration rate normal. Temperature normal. Oxygen saturation normal. Appearance: Alert. Oriented X3. No acute distress. Head: Normal external exam. Normocephalic. Atraumatic. No Mukherjee signs noted. No raccoon eyes noted Eyes: PERRLA. EOMI. Conjunctiva and sclera normal. Eyelids normal. ENT: TM's Normal. Pharynx normal. Uvula midline. Moist mucous membranes. No trismus noted. No drooling noted. No muffled voice noted. Neck: Normal inspection. Neck supple. FROM. No adenopathy. Thyroid Normal. No meningeal signs. No neck mass noted. CVS: Normal heart rate and rhythm. Heart sound normal. No murmurs noted. Pulses normal throughout. Respiratory: No respiratory distress. Painless inspiration. Breath sounds normal. No wheezes/rales/rhonchi noted. Chest nontender. No accessory muscle usage noted or decreased air movement noted. Abdomen: Soft and nontender. Bowel sounds normal in all 4 quadrants. No distention noted. No organomegaly noted. No visible injury noted. Back: No CVA tenderness. Full range of motion noted. Skin: Skin warm and dry. Normal skin color. Normal skin turgor. No rashes/lesions/lacerations noted. Extremities: Left shoulder held in adduction position with tender abduction once it reach 30 degree angle, no deformity, direct reproducible tenderness over lateral aspect of the humerus. Neuro: Oriented X 3. Cranial nerve exam: II-XII are grossly intact No motor deficit. No sensory deficit. Reflexes normal. Course Course Course Narrative: Left shoulder rotator cuff tendinitis patient is allergic to NSAIDs will recommend Tylenol/oxycodone/shoulder immobilization/follow-up with ortho/off work for 3 days. Medical Decision Making Differential Diagnosis Differential Diagnoses: The differential diagnosis associated with the presentation includes (Shoulder dislocation, arthritis, fracture, rotator cuff tendinitis.) Independent Interpretation I performed an independent interpretation of an: Plain X-Ray (Left shoulder: No acute fracture dislocation) Radiology Impression Discussion of test interpretation with radiology: I have reviewed the radiologist's reading. Discharge Plan Discharge Clinical Impression: Tendinitis of left rotator cuff Patient Disposition: Home, Self-Care Instructions: Rotator Cuff Tendinitis (ED) Prescriptions: New cyclobenzaprine 10 mg tablet 10 mg PO TID Qty: 20 0RF oxycodone 5 mg tablet 5 mg PO Q8H PRN (Reason: pain) Qty: 7 0RF Rx Instructions: Partial Fill upon patient request. No Action cyclobenzaprine 10 mg tablet 10 mg PO TID PRN (Reason: pain) Qty: 18 0RF Rx Instructions: side effect is drowsiness. Do not take at work or while driving. prednisone 20 mg tablet 40 mg PO DAILY 5 Days Qty: 10 0RF cyclobenzaprine 10 mg tablet 10 mg PO TID PRN (Reason: muscle spasm) Qty: 10 0RF ibuprofen 600 mg tablet 600 mg PO Q8H PRN (Reason: pain) Qty: 14 0RF lidocaine 5 % adhesive patch,medicated 1 patch topical DAILY Qty: 15 0RF Rx Instructions: leave on most painful area for up to 12 hrs amoxicillin 500 mg tablet 500 mg PO BID Qty: 20 0RF hydroxyzine pamoate [Vistaril] 50 mg capsule 50 mg PO TID PRN (Reason: anxiety) Qty: 20 0RF Referrals: Sudhir Conner MD [Physician] - Stand Alone Forms: Work/School Release
[2022-07-10] MEDS: Cyclobenzaprine HCl 10 MG TABLET PO (00:27)
[2022-07-10] MEDS: Acetaminophen 325 MG TABLET 650 MG PO (00:27)
== END 2022-07-10 00:31 | disposition home or self-care (01) ==
PROVIDERS: Emergency Provider Emergency Medicine; PCP Internal Medicine
DX: M75.32 Calcific tendinitis of left shoulder (principal); Z79.899 Other long term (current) drug therapy
CPT/HCPCS: 73030; 99284

== ENCOUNTER 2022-10-21 12:05 | Emergency (ER) | payer OTHER, SELFPAY ==
[2022-10-21 12:10] VITALS: BP 108/61; PULSE 75; RESP 18; TEMP 36.7; O2SAT 100; BMI 24.3
--- NOTE | 2022-10-21 12:13 | ED_ITS ---
HPI - General Adult General Chief complaint: Neck Pain/Injury Stated complaint: Neck pain Time Seen by Provider: 10/21/22 12:20 Source: patient, RN notes reviewed and old records reviewed Mode of arrival: ambulatory Limitations: no limitations History of Present Illness HPI narrative: 42-year-old male presents for evaluation of left neck pain. 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 He states that yesterday he started with left-sided neck pain The pain is worse with turning his head to the right He denies any specific injury but is unsure if he was straining his neck while working Denies any numbness, tingling, weakness in his arms or legs Denies any headache Related Data Previous Rx's Medication Instructions Recorded cyclobenzaprine 10 mg tablet 10 mg PO TID PRN pain #18 tabs 03/28/21 prednisone 20 mg tablet 40 mg PO DAILY 5 days #10 tabs 03/28/21 amoxicillin 500 mg tablet 500 mg PO BID #20 tabs 10/02/21 hydroxyzine pamoate 50 mg capsule 50 mg PO TID PRN anxiety #20 caps 02/09/22 (Vistaril) cyclobenzaprine 10 mg tablet 10 mg PO TID PRN muscle spasm #10 03/07/22 tabs ibuprofen 600 mg tablet 600 mg PO Q8H PRN pain #14 tabs 03/07/22 lidocaine 5 % topical patch 1 patch topical DAILY #15 ea 03/07/22 cyclobenzaprine 10 mg tablet 10 mg PO TID #20 tabs 07/09/22 oxycodone 5 mg tablet 5 mg PO Q8H PRN pain #7 tabs 07/09/22 methocarbamol 500 mg tablet 500 mg PO QID PRN muscle spasm #20 10/21/22 tabs naproxen 500 mg tablet 500 mg PO BID PRN pain #20 tabs 10/21/22 oxycodone 5 mg tablet 5 mg PO Q6H PRN severe pain (scale 10/21/22 score 7-10) #4 tabs Allergies Allergy/AdvReac Type Severity Reaction Status Date / Time aspirin Allergy Intermediate Swelling Verified 10/21/22 12:10 Review of Systems Constitutional: Constitutional: Reports as per HPI, Denies chills, Denies fatigue, Denies fever(s) and Denies headache(s) ENT: Denies headache(s) and Reports neck pain Cardiovascular: Cardiovascular: Denies chest pain and Denies dyspnea Respiratory: Respiratory: Denies cough and Denies dyspnea Musculoskeletal: Musculoskeletal: Reports neck pain Neurologic: Denies headache(s) and Denies focal weakness Endocrine: Endocrine: Denies fatigue PMFSH Past Medical History Medical History No known health problems Social History Social History Advance Directives: No Advance Directives Information Provided: No Physical Exam ED Vital Signs: Vital Signs - 24 hr 10/21/22 12:10 Temperature 98.0 F Pulse Rate 75 Respiratory Rate 18 Blood Pressure 108/61 Pulse Oximetry 100 Oxygen Delivery Method Room Air BMI result Body Mass Index 24.3 Const General: healthy appearing, comfortable, no acute distress, alert and awake Nutritional Appearance: well nourished Orientation/consciousness: patient oriented x3 HENMT Head: Yes normocephalic and Yes atraumatic Throat: Yes posterior oropharynx normal Eyes Eyelids: Yes eyelids normal Conjunctivae: conjunctivae normal Sclerae: sclerae normal Corneas: corneas normal Pupils: Equal, round and reactive pupils present EOM: EOMs intact bilaterally Neck Other: Left-sided cervical paraspinous region tenderness without deformity Resp Effort & Inspection: normal respiratory effort, able to speak in complete sentences, no audible wheezes and not labored Auscultation: clear to auscultation bilaterally Cardio Rate: regular rate Rhythm: regular rhythm GI Inspection: No distended Palpation (GI): Soft to palpation, not firm, nontender, no guarding and not rigid Auscultation: normoactive bowel sounds Skin General skin exam: no rashes or lesions noted and elasticity normal Neuro General: patient oriented x3 Cranial nerves: Yes Equal, round and reactive pupils present and Yes Bilaterally intact EOM present Cognition (Neuro): normal cognition Motor exam (neuro): 5/5 motor strength present throughout Extrem Other: Moving all extremities well without any obvious deformities Medical Decision Making Medical Decision Making MDM Narrative: 42-year-old male presents for evaluation of left-sided neck pain consistent with a cervical strain. It is likely that he constantly while having his neck and upper position at work. I do not see any indication for emergent imaging. There is no vertebral tenderness. No neurologic deficits. Will treat symptomatically Differential Diagnosis Cervical strain Radiculopathy Spasmodic torticollis Trapezius strain Discharge Plan Discharge Clinical Impression: Strain of cervical portion of left trapezius muscle Patient Disposition: Home, Self-Care Instructions: Cervical Strain (ED) Additional Instructions: Take naproxen twice daily for the next 5 days Use methocarbamol as needed for muscle spasms You may use oxycodone for severe, breakthrough pain. This may make you sleepy, did not drink alcohol or drive after taking Continue warm compresses Prescriptions: New naproxen 500 mg tablet 500 mg PO BID PRN (Reason: pain) Qty: 20 0RF methocarbamol 500 mg tablet 500 mg PO QID PRN (Reason: muscle spasm) Qty: 20 0RF oxycodone 5 mg tablet 5 mg PO Q6H PRN (Reason: severe pain (scale score 7-10)) Qty: 4 0RF Rx Instructions: Partial Fill upon patient request. No Action cyclobenzaprine 10 mg tablet 10 mg PO TID PRN (Reason: pain) Qty: 18 0RF Rx Instructions: side effect is drowsiness. Do not take at work or while driving. prednisone 20 mg tablet 40 mg PO DAILY 5 Days Qty: 10 0RF cyclobenzaprine 10 mg tablet 10 mg PO TID PRN (Reason: muscle spasm) Qty: 10 0RF ibuprofen 600 mg tablet 600 mg PO Q8H PRN (Reason: pain) Qty: 14 0RF lidocaine 5 % adhesive patch,medicated 1 patch topical DAILY Qty: 15 0RF Rx Instructions: leave on most painful area for up to 12 hrs cyclobenzaprine 10 mg tablet 10 mg PO TID Qty: 20 0RF oxycodone 5 mg tablet 5 mg PO Q8H PRN (Reason: pain) Qty: 7 0RF Rx Instructions: Partial Fill upon patient request. amoxicillin 500 mg tablet 500 mg PO BID Qty: 20 0RF hydroxyzine pamoate [Vistaril] 50 mg capsule 50 mg PO TID PRN (Reason: anxiety) Qty: 20 0RF Stand Alone Forms: Work/School Release
== END 2022-10-21 12:24 | disposition home or self-care (01) ==
PROVIDERS: Emergency Provider Emergency Medicine; PCP Internal Medicine
DX: S16.1XXA Strain of muscle, fascia and tendon at neck level, initial encounter (principal); X50.9XXA Other and unspecified overexertion or strenuous movements or postures, initial encounter; Y93.89 Activity, other specified; Y92.59 Other trade areas as the place of occurrence of the external cause; Y99.0 Civilian activity done for income or pay
CPT/HCPCS: 99282; 99283